=== PATIENT | female | born 1960 | race Caucasian/White ===

== ENCOUNTER 2016-06-24 07:27 | Day surgery (SDC) | payer BC ==
[~2016-06-24] VITALS: Ht 157.5 cm; Wt 67.5 kg
--- NOTE | 2016-06-30 08:55 | OR ---
ADMIT: 06/24/2016 RM/LOC: [facility] MR#: [id number] [address] [id number] [address] [place] [address] Operative/Delivery Room Report SEX: F AGE: 56 : 1960 SURGERY DATE: 06/24/2016 SURGEON: Enrico Montenegro MD PREOPERATIVE DIAGNOSIS: Ventral hernia in the right upper quadrant. POSTOPERATIVE DIAGNOSIS: Ventral hernia in the right upper quadrant. PROCEDURE: Primary repair of small ventral hernia in the right upper quadrant. ANESTHESIA: General endotracheal. ESTIMATED BLOOD LOSS: 25 mL. DESCRIPTION OF PROCEDURE: The patient was taken to the operating room and placed supine on the operating room table. General anesthesia was established. The abdomen was prepped and draped in the standard surgical fashion. A transverse incision was made overlying the preoperatively-marked hernia in the right upper quadrant. Dissection proceeded through the subcutaneous tissue of the hernia sac. The hernia sac was dissected back to the fascial margins and then excised with a small piece of incarcerated omentum. The fascial margins were cleaned of overlying fatty tissue. The defect measured just under 1 cm in diameter. Because of the small size, decision was made for primary repair. This was performed with #1 Ethibond suture. This allowed adequate closure with no tension on the repair. The deep tissue was then closed with 2-0 Vicryl suture. Skin edges were approximated with 4-0 Monocryl in a subcuticular fashion and Dermabond. Local anesthetic was injected and a dressing was applied. Sponge, needle, and instrument counts were correct at the end of the case. The patient tolerated the procedure well and transferred to the recovery area in stable condition. Enrico Montenegro MD/ padmajal JOB #: [id number] CC: Enrico Montenegro, Attending Physician Adele Fung, Family Physician
== END 2016-06-24 13:25 | disposition home or self-care (01) ==
LOC: SSS 07:27
PROC: 0WQF0ZZ Repair Abdominal Wall, Open Approach (ICD-10-PCS; principal; 2016-06-24)
DX: K43.9 Ventral hernia without obstruction or gangrene (principal); I10 Essential (primary) hypertension; Z79.899 Other long term (current) drug therapy; Z90.710 Acquired absence of both cervix and uterus; Z98.890 Other specified postprocedural states